=== PATIENT | male | born 1955 | race Caucasian/White ===

== ENCOUNTER 2019-04-23 08:46 | Outpatient (REF) | payer MEDICAID, SELFPAY ==
[2019-04-23 12:15] LABS: ALT 28 U/L (16-63); AST 18 U/L (15-37); Anion Gap 9.9 mmol/L (3-11); BUN 20 mg/dL (7-18); CO2 28.1 mmol/L (21.0-32.0); CREATININE 0.98 mg/dL (0.70-1.30); Calcium 8.7 mg/dL (8.5-10.1); Calculated LDL 146 mg/dL (<100); Chloride 103 mmol/L (98-107); Cholesterol 201 mg/dL (<200); Glucose 80 mg/dL (74-106); HDL Cholesterol 42 mg/dL (40-60); Potassium 4.6 mmol/L (3.5-5.1); Sodium 141 mmol/L (136-145); Triglyceride 65 mg/dL (<150)
[2019-04-24 10:29] LABS: PSA, Diagnostic 5.9 ng/mL (0.0-4.5)
== END 2019-04-23 09:06 ==
LOC: NCHCN 08:46
PROVIDERS: Visit Provider Nurse Practitioner Family
DX: I10 Essential (primary) hypertension (principal); R97.20 Elevated prostate specific antigen [PSA]; Z13.220 Encounter for screening for lipoid disorders
CPT/HCPCS: 80048; 80061; 84153; 84450; 84460

== ENCOUNTER 2019-07-17 09:07 | Outpatient (REF) | payer MEDICAID, SELFPAY ==
[2019-07-19 08:33] LABS: PSA, Screening 4.5 ng/mL (0.0-4.5)
== END 2019-07-17 09:27 ==
LOC: NCHCN 09:07
PROVIDERS: Visit Provider Nurse Practitioner Family
DX: Z12.5 Encounter for screening for malignant neoplasm of prostate (principal); R97.20 Elevated prostate specific antigen [PSA]
CPT/HCPCS: 84153

== ENCOUNTER 2020-04-29 19:08 | Outpatient (REF) | payer MEDICAID, SELFPAY ==
[2020-04-29 19:52] LABS: BUN 23 mg/dL (7-18); Calcium 8.9 mg/dL (8.5-10.1); Chloride 104 mmol/L (98-107); Glucose 80 mg/dL (74-106); Potassium 4.3 mmol/L (3.5-5.1); Sodium 139 mmol/L (136-145)
[2020-04-30 18:18] LABS: PSA, Diagnostic 5.3 ng/mL (0.0-4.5)
== END 2020-04-29 19:09 | disposition home or self-care (01) ==
LOC: NCHCN 19:08
PROVIDERS: Visit Provider Nurse Practitioner Family
DX: I10 Essential (primary) hypertension (principal); R97.20 Elevated prostate specific antigen [PSA]
CPT/HCPCS: 80048; 84153

== ENCOUNTER 2020-07-11 17:28 | Outpatient (REF) | payer MEDICAID, SELFPAY ==
[2020-07-11 14:10] LABS: ALT 31 U/L (16-63); AST 17 U/L (15-37); Calculated LDL 62 mg/dL (<100); Cholesterol 127 mg/dL (<200); HDL Cholesterol 54 mg/dL (40-60); Triglyceride 57 mg/dL (<150)
== END 2020-07-11 17:29 | disposition home or self-care (01) ==
LOC: NCHCN 17:28
PROVIDERS: Visit Provider Nurse Practitioner Family
DX: E78.5 Hyperlipidemia, unspecified (principal); I10 Essential (primary) hypertension
CPT/HCPCS: 80061; 84450; 84460

== ENCOUNTER 2020-12-23 10:52 | Outpatient (REF) | payer MEDICAID, SELFPAY ==
[2020-12-23 14:15] LABS: HCT 46.3 % (40.0-50.0); HGB 15.5 g/dL (13.5-17.5); MCH 31.7 pg (27.0-33.0); MCHC 33.5 % (32.0-36.0); MCV 94.7 fL (80-95); MPV 9.6 fL (8.0-11.0); Platelet Count 243 10^3/uL (130-400); RBC 4.89 10^6/uL (4.36-5.78); RDW 11.7 % (11.8-14.1); RDW-SD 40.6 fL; WBC 6.03 10^3/uL (4.4-10.8)
[2020-12-24 12:01] LABS: HIV-1/2 Ag & Ab Screen Negative (Negative)
== END 2020-12-23 10:53 | disposition home or self-care (01) ==
LOC: NCHCN 10:52
PROVIDERS: Visit Provider Nurse Practitioner Family
DX: I10 Essential (primary) hypertension (principal); Z11.4 Encounter for screening for human immunodeficiency virus [HIV]
CPT/HCPCS: 85027; 87389

== ENCOUNTER 2021-01-05 01:17 | Outpatient (CLI) | payer MEDICAID, SELFPAY ==
--- NOTE | 2021-01-05 | DI.RAD_ITS ---
Exam(s) XR HIP PELVIS ADULT BL EXAM: XR HIP PELVIS ADULT BL CLINICAL HISTORY: CHRONIC HIP PAIN, M25.559. TECHNIQUE: 2D digital imaging was performed. COMPARISON: No exams were available for comparison FINDINGS: AP view of the pelvis and additional two views of each hip reveal no evidence of pelvic nor hip fract ures. Right hip appears unremarkable as does the left hip. There are no degenerative changes. No o sseous lesions. Sacroiliac joints appear unremarkable. Degenerative disc disease in lumbar spine is noted. IMPRESSION: DATA REPOSITORY: RADIATION DOSE DELIVERED:
--- NOTE | 2021-01-05 | DI.RAD_ITS ---
Exam(s) XR LUMBAR SPINE COMPLETE EXAM: XR LUMBAR SPINE COMPLETE CLINICAL HISTORY: CHRONIC HIP AND BACK PAIN, M54.89. TECHNIQUE: 2D digital imaging was performed. COMPARISON: No exams were available for comparison FINDINGS: There is no evidence of fracture or listhesis. However, there is multilevel moderate disc space narr owing L2-3, L3-4 L4-5, and mild disc space narrowing at L5-S1 level. There are marginal osteophytes at L3-4 and L4-5 levels. No prominent scoliosis. Partial sacralization of L5 noted. Sacroiliac raghu nts appear unremarkable. Mild degenerative changes in the facet joints. No pars defects. No listhe sis. IMPRESSION: Multilevel degenerative disc disease. DATA REPOSITORY: RADIATION DOSE DELIVERED:
== END 2021-01-05 01:37 ==
PROVIDERS: Visit Provider Nurse Practitioner Family
DX: M25.551 Pain in right hip (principal); M54.89 Other dorsalgia; M25.552 Pain in left hip; M47.816 Spondylosis without myelopathy or radiculopathy, lumbar region
CPT/HCPCS: 73521; 72110

== ENCOUNTER 2021-06-23 14:50 | Outpatient (REF) | payer MEDICAID, SELFPAY | END 2021-06-23 14:51 | disposition home or self-care (01) | LOC: NCHCN 14:50 | PROVIDERS: Visit Provider Nurse Practitioner Family ==

== ENCOUNTER 2021-06-23 15:12 | Outpatient (REF) | payer MEDICAID, SELFPAY ==
[2021-06-23 18:24] LABS: ALT 32 U/L (16-63); AST 24 U/L (15-37); Alkaline Phosphatase 76 U/L (46-116); Anion Gap 8.2 mmol/L (3-11); BUN 16 mg/dL (7-18); Bilirubin, Total 0.5 mg/dL (0.2-1.0); CO2 26.8 mmol/L (21.0-32.0); Calcium 9.2 mg/dL (8.5-10.1); Chloride 104 mmol/L (98-107); Glucose 90 mg/dL (74-106); Potassium 4.3 mmol/L (3.5-5.1); Sodium 139 mmol/L (136-145); Total Protein 7.2 g/dL (6.4-8.2)
[2021-06-23 22:27] LABS: PSA, Diagnostic 6.8 ng/mL (<=4.5)
== END 2021-06-23 15:13 | disposition home or self-care (01) ==
LOC: NCHCN 15:12
PROVIDERS: Visit Provider Nurse Practitioner Family
DX: R97.20 Elevated prostate specific antigen [PSA] (principal); E78.5 Hyperlipidemia, unspecified; I10 Essential (primary) hypertension
CPT/HCPCS: 80053; 84153

== ENCOUNTER 2021-12-16 18:36 | Outpatient (REF) | payer MEDICAID, SELFPAY ==
[2021-12-16 22:07] LABS: PSA, Screening 6.7 ng/mL (<=4.5)
== END 2021-12-16 18:37 | disposition home or self-care (01) ==
LOC: NCHCN 18:36
PROVIDERS: PCP Nurse Practitioner Family; Visit Provider Nurse Practitioner Family
DX: R97.20 Elevated prostate specific antigen [PSA] (principal); Z12.5 Encounter for screening for malignant neoplasm of prostate
CPT/HCPCS: 84153

== ENCOUNTER → 2021-12-22 02:54 | Outpatient (CLI) | payer MEDICAID, SELFPAY ==
--- NOTE | 2021-12-22 08:00 | DI.CTLCSR_ITS ---
Exam(s) CT CHEST LUNG CANCER SCREEN EXAM: CT CHEST LUNG CANCER SCREEN CLINICAL HISTORY: TOBACCO USE, Z72.0 TECHNIQUE: Imaging Protocol: Axial computed tomography images with coronal and sagittal reformatted images were created and reviewed COMPARISON: No exams were available for comparison FINDINGS: Tracheobronchial tree: Mild bronchiectatic changes. Pulmonary parenchyma: No consolidation or dominant measurable mass. Mild emphysematous changes in the lungs. Lung Nodules: There is a 7 mm nodule in the medial aspect of the right lower lobe. Mediastinum and Ceci: No dominant adenopathy or fluid collection. The esophagus is unremarkable. Thyroid gland: Unremarkable. Lymph nodes: Unremarkable. Pleura: No effusion or pneumothorax. There are mild pleural calcifications in the right hemithorax po steriorly. Heart: The heart is not dilated. No coronary artery calcifications are seen. No pericardial effusion . Aorta: Thoracic aorta non-dilated.Atherosclerosis is present. Upper abdomen: Unremarkable. Soft Tissues: Mild gynecomastia. Bones: Within normal limits. IMPRESSION: 7 mm right lower lobe pulmonary nodule. Lung RADS Cat 4A - Suspicious: Findings for which additional diagnostic testing and/or tissue samplin g recommended Lung-RADS 1.0 CATEGORIES: Category 0 - Prior chest CT exam(s) being located for comparison. Category 1 - Annual screening in 12 months. No nodules or definitely benign nodules. Category 2 - Annual screening in 12 months. Benign appearance. Nodules with low likelihood of becomin g active cancer. Category 3 - 6-month follow-up. Probably benign. Short-term follow-up suggested. Nodules with low lik elihood of becoming active cancer. Category 4A - 3-month follow-up and CT/PET if >8 mm in size. Suspicious finding. Findings which requi re additional testing. Category 4B - Findings which require additional testing and tissue sampling. Suspicious finding. Category 4X - Category 3 or 4 nodules with additional features or imaging findings that increases the suspicion of malignancy. Modifier S- Potentially clinically significant finding. (Non lung cancer) RADIATION DOSE DELIVERED: 71.95mGy.cm Total DLP 1.84mGy CTDIvol 71.95mGy.cm Total DLP 1.84mGy CTDIvol DATA REPOSITORY: All CT scans at this facility are submitted to the National Radiology Data Registry (NRDR) Dose Index Registry (DIR) with the [employer] ([employer]). RADIATION OPTIMIZATION: All CT scans at this facility use at least one of these dose optimization te chniques: automated exposure control; mA and/or kV adjustment per patient size (includes targeted exa ms where dose is matched to clinical indication); or iterative reconstruction.
== END ==
PROVIDERS: PCP Nurse Practitioner Family; Visit Provider Nurse Practitioner Family
DX: Z12.2 Encounter for screening for malignant neoplasm of respiratory organs (principal); Z72.0 Tobacco use; J43.8 Other emphysema; R91.1 Solitary pulmonary nodule
CPT/HCPCS: 71271

== ENCOUNTER 2022-06-18 11:31 | Outpatient (REF) | payer MEDICAID, SELFPAY ==
[2022-06-18 15:23] LABS: HCT 45.7 % (40.0-50.0); HGB 15.7 g/dL (13.5-17.5); MCH 31.5 pg (27.0-33.0); MCHC 34.4 % (32.0-36.0); MCV 92 fL (80-95); MPV 9.4 fL (8.0-11.0); Platelet Count 208 10^3/uL (130-400); RBC 4.98 10^6/uL (4.36-5.78); RDW 11.9 % (11.8-14.1); RDW-SD 40.6 fL; WBC 4.74 10^3/uL (4.4-10.8)
[2022-06-18 15:54] LABS: ALT 29 U/L (16-63); AST 25 U/L (15-37); Albumin 3.9 g/dL (3.4-5.0); Alkaline Phosphatase 90 U/L (46-116); Anion Gap 5.5 mmol/L (3-11); BUN 16 mg/dL (7-18); Bilirubin, Total 0.7 mg/dL (0.2-1.0); CO2 29.5 mmol/L (21.0-32.0); CREATININE 1.1 mg/dL (0.70-1.30); Calcium 9.3 mg/dL (8.5-10.1); Chloride 105 mmol/L (98-107); Estimated GFR 74.96 (mL/min/1.73m2); Glucose 117 mg/dL (74-106); Potassium 5.1 mmol/L (3.5-5.1); Sodium 140 mmol/L (136-145); Total Protein 7.3 g/dL (6.4-8.2)
[2022-06-21 11:06] LABS: PSA, Screening 5.6 ng/mL (<=4.5)
== END 2022-06-18 11:32 | disposition home or self-care (01) ==
LOC: NCHCN 11:31
PROVIDERS: PCP Nurse Practitioner Family; Visit Provider Nurse Practitioner Family
DX: I10 Essential (primary) hypertension (principal); R97.20 Elevated prostate specific antigen [PSA]; Z12.5 Encounter for screening for malignant neoplasm of prostate; Z72.0 Tobacco use
CPT/HCPCS: 80053; 84153; 85027

== ENCOUNTER 2022-12-07 11:29 | Outpatient (REF) | payer MEDICAID, SELFPAY ==
[2022-12-07 15:42] LABS: Calculated LDL 67 mg/dL (<100); Cholesterol 130 mg/dL (<200); HDL Cholesterol 53 mg/dL (40-60); Triglyceride 51 mg/dL (<150)
[2022-12-07 23:06] LABS: PSA, Diagnostic 5.1 ng/mL (<=4.5)
== END 2022-12-07 11:30 | disposition home or self-care (01) ==
LOC: NCHCN 11:29
PROVIDERS: PCP Nurse Practitioner Family; Visit Provider Nurse Practitioner Family
DX: E78.5 Hyperlipidemia, unspecified (principal); R97.20 Elevated prostate specific antigen [PSA]
CPT/HCPCS: 80061; 84153

== ENCOUNTER 2024-03-21 16:47 | Outpatient (REF) | payer MEDICARE, SELFPAY ==
[2024-03-21 20:55] LABS: HCT 42.2 % (40.0-50.0); MCH 30.4 pg (27.0-33.0); MCHC 33.2 % (32.0-36.0); MCV 92 fL (80-95); MPV 9.5 fL (8.0-11.0); Platelet Count 178 10^3/uL (130-400); RDW 11.7 % (11.8-14.1); RDW-SD 39.4 fL; WBC 7.17 10^3/uL (4.4-10.8)
[2024-03-21 21:05] LABS: ALT 28 U/L (16-63); AST 30 U/L (15-37); Albumin 3.4 g/dL (3.4-5.0); Alkaline Phosphatase 93 U/L (46-116); Anion Gap 8.1 mmol/L (3-11); BUN 20 mg/dL (7-18); Bilirubin, Total 0.47 mg/dL (0.2-1.0); CO2 26.9 mmol/L (21.0-32.0); CREATININE 1.1 mg/dL (0.70-1.30); Calcium 8.8 mg/dL (8.5-10.1); Calculated LDL 61 mg/dL (<100); Chloride 106 mmol/L (98-107); Cholesterol 112 mg/dL (<200); Estimated GFR 74.04 (mL/min/1.73m2); Glucose 106 mg/dL (74-106); HDL Cholesterol 37 mg/dL (40-60); Potassium 4.4 mmol/L (3.5-5.1); Sodium 141 mmol/L (136-145); Total Protein 6.9 g/dL (6.4-8.2); Triglyceride 72 mg/dL (<150)
[2024-03-22 19:01] LABS: PSA, Diagnostic 6.8 ng/mL (<=4.5)
== END 2024-03-21 16:48 | disposition home or self-care (01) ==
LOC: NCHCN 16:47
PROVIDERS: PCP Nurse Practitioner Family; Visit Provider Nurse Practitioner Family
DX: Z00.00 Encounter for general adult medical examination without abnormal findings (principal); R97.20 Elevated prostate specific antigen [PSA]
CPT/HCPCS: 80053; 80061; 85027; 84153